=== PATIENT | female | born 1950 | race Caucasian/White ===

== ENCOUNTER 2017-12-12 16:40 | Observation (INO) | payer OTHER ==
[2017-12-12] MEDS: SOD CHLORIDE 0.9% 500 ML IV (18:08)
[2017-12-12] MEDS: ASPIRIN 81 MG TAB PO (18:08)
[2017-12-12 18:16] LABS: ADD MAN DIFF? NO
[2017-12-12 18:19] LABS: WHITE BLOOD COUNT 9.2 10^3/ul (4.8-10.8)
[2017-12-12 18:19] LABS: BASOPHILS % 0.3 % (0.0-2.0); EOSINOPHILS # 0.1 10^3/ul (0.0-0.5); EOSINOPHILS % 1.4 % (0.0-7.0); HEMATOCRIT 36.3 % (37.0-47.0); HEMOGLOBIN 11.9 g/dl (12.0-16.0); LYMPHOCYTES # 2.5 10^3/ul (0.8-2.9); LYMPHOCYTES % 27.4 % (15.0-51.0); MEAN CORPUSCULAR HEMOGLOBIN 28.9 pg (29.0-33.0); MEAN CORPUSCULAR HGB CONC 32.8 g/dl (32.0-37.0); MEAN CORPUSCULAR VOLUME 88.1 fl (82.0-101.0); MONOCYTE # 0.6 10^3/ul (0.3-0.9); MONOCYTES % 6.1 % (0.0-11.0); NEUTROPHIL # 5.9 10^3/ul (1.6-7.5); NEUTROPHILS % 64.5 % (39.0-77.0); PLATELET COUNT 319 10^3/UL (140-415); RED BLOOD COUNT 4.12 10^6/ul (4.20-5.40)
[2017-12-12 18:39] LABS: ANION GAP 15 (8-16); BLOOD UREA NITROGEN 27 mg/dl (7-20); CALCIUM 9.1 mg/dl (8.4-10.2); CARBON DIOXIDE 27 mmol/L (21-31); CHLORIDE 103 mmol/L (97-110); CREATININE 0.96 mg/dl (0.44-1.00); GLUCOSE 128 mg/dl (70-220); SODIUM 141 mmol/L (135-144)
[2017-12-12 19:02] LABS: TROPONIN-I < 0.012 ng/ml (0.00-0.12)
[2017-12-12] MEDS ORDERED: ACETAMINOPHEN 325 MG TAB PO (21:00)
[2017-12-12] MEDS ORDERED: ONDANSETRON 4 MG INJ IV (21:00)
[2017-12-13] MEDS ORDERED: GLUCAGON 1 MG INJ IM (04:30)
[2017-12-13] MEDS ORDERED: GLUCOSE GEL 15 GRAM TUBE PO ×2 (04:30)
[2017-12-13] MEDS ORDERED: ACETAMINOPHEN 325 MG TAB PO (04:30)
[2017-12-13] MEDS ORDERED: DOCUSATE SODIUM 100 MG CAP PO (04:30)
[2017-12-13] MEDS ORDERED: DEXTROSE 50% 50 ML SYRINGE IV ×2 (04:30)
[2017-12-13] MEDS ORDERED: GLUCOSE GEL 15 GRAM TUBE BUCCAL (04:30)
[2017-12-13] MEDS ORDERED: ONDANSETRON 4 MG INJ IV (04:30)
[2017-12-13] MEDS: INSULIN ASPART [NOVOLOG] 3 ML PEN SC ×4 (07:55→20:37)
[2017-12-13] MEDS: GABAPENTIN 300 MG CAP PO ×2 (08:16→20:39)
[2017-12-13 08:52] LABS: ADD MAN DIFF? NO
[2017-12-13 08:57] LABS: BASOPHIL # 0.1 10^3/ul (0.0-0.1); BASOPHILS % 0.6 % (0.0-2.0); EOSINOPHILS # 0.2 10^3/ul (0.0-0.5); EOSINOPHILS % 2.5 % (0.0-7.0); HEMATOCRIT 33.6 % (37.0-47.0); HEMOGLOBIN 11.1 g/dl (12.0-16.0); LYMPHOCYTES # 2.3 10^3/ul (0.8-2.9); LYMPHOCYTES % 28.1 % (15.0-51.0); MEAN CORPUSCULAR HEMOGLOBIN 28.7 pg (29.0-33.0); MEAN CORPUSCULAR VOLUME 86.8 fl (82.0-101.0); MEAN PLATELET VOLUME 9.3 fl (7.4-10.4); MONOCYTE # 0.5 10^3/ul (0.3-0.9); MONOCYTES % 5.8 % (0.0-11.0); NEUTROPHIL # 5.2 10^3/ul (1.6-7.5); NEUTROPHILS % 62.6 % (39.0-77.0); PLATELET COUNT 282 10^3/UL (140-415); RED BLOOD COUNT 3.87 10^6/ul (4.20-5.40); RED CELL DISTRIBUTION WIDTH 14.1 % (11.5-14.5)
[2017-12-13 08:57] LABS: WHITE BLOOD COUNT 8.3 10^3/ul (4.8-10.8)
[2017-12-13 09:27] LABS: ANION GAP 11 (8-16); BLOOD UREA NITROGEN 18 mg/dl (7-20); CALCIUM 8.8 mg/dl (8.4-10.2); CARBON DIOXIDE 28 mmol/L (21-31); CHLORIDE 106 mmol/L (97-110); CREATINE KINASE 57 IU/L (23-200); CREATININE 0.66 mg/dl (0.44-1.00); GLUCOSE 107 mg/dl (70-220); POTASSIUM 4.1 mmol/L (3.5-5.1); SODIUM 141 mmol/L (135-144)
[2017-12-13 09:37] LABS: CK-MB 0.57 ng/ml (0.0-2.4)
[2017-12-13 09:39] LABS: TROPONIN-I < 0.012 ng/ml (0.00-0.12)
[2017-12-13] MEDS ORDERED: NITROGLYCERIN (SL) 0.4 MG TAB SL (12:00)
[2017-12-13 13:45] LABS: CHOL/HDL RATIO 2.7 RATIO; HDL CHOLESTEROL 49 mg/dl (35-98); LDL CHOLESTEROL,CALCULATED 63 mg/dl; TRIGLYCERIDES 104 mg/dl (0-149)
[2017-12-13 13:45] LABS: CHOLESTEROL 133 mg/dl (100-200)
[2017-12-13 13:49] LABS: HEMOGLOBIN A1C 6.1 % (0-5.9)
[2017-12-13 13:56] LABS: B-TYPE NATRIURETIC PEPTIDE 371 PG/ML (0-125)
[2017-12-13 15:37] LABS: CREATINE KINASE 55 IU/L (23-200)
[2017-12-13 15:50] LABS: CK INDEX 0.9
[2017-12-13 15:55] LABS: TROPONIN-I < 0.012 ng/ml (0.00-0.12)
[2017-12-13 19:22] LABS: CREATINE KINASE 59 IU/L (23-200)
[2017-12-13 19:35] LABS: CK INDEX 0.8; CK-MB 0.49 ng/ml (0.0-2.4)
[2017-12-13 19:36] LABS: TROPONIN-I < 0.012 ng/ml (0.00-0.12)
[2017-12-14] MEDS: ACCU-CHEK XX (02:00)
[2017-12-14 07:15] LABS: ADD MAN DIFF? NO
[2017-12-14 07:20] LABS: WHITE BLOOD COUNT 7.6 10^3/ul (4.8-10.8)
[2017-12-14 07:20] LABS: BASOPHILS % 0.5 % (0.0-2.0); EOSINOPHILS # 0.2 10^3/ul (0.0-0.5); HEMATOCRIT 34.8 % (37.0-47.0); HEMOGLOBIN 11.4 g/dl (12.0-16.0); LYMPHOCYTES # 2.6 10^3/ul (0.8-2.9); MEAN CORPUSCULAR HEMOGLOBIN 28.8 pg (29.0-33.0); MEAN CORPUSCULAR HGB CONC 32.8 g/dl (32.0-37.0); MEAN CORPUSCULAR VOLUME 87.9 fl (82.0-101.0); MEAN PLATELET VOLUME 9.3 fl (7.4-10.4); MONOCYTE # 0.6 10^3/ul (0.3-0.9); MONOCYTES % 7.7 % (0.0-11.0); NEUTROPHIL # 4.1 10^3/ul (1.6-7.5); NEUTROPHILS % 54.4 % (39.0-77.0); PLATELET COUNT 313 10^3/UL (140-415); RED BLOOD COUNT 3.96 10^6/ul (4.20-5.40); RED CELL DISTRIBUTION WIDTH 13.8 % (11.5-14.5)
[2017-12-14 07:49] LABS: ANION GAP 11 (8-16); BLOOD UREA NITROGEN 19 mg/dl (7-20); CALCIUM 9.4 mg/dl (8.4-10.2); CARBON DIOXIDE 30 mmol/L (21-31); CHLORIDE 106 mmol/L (97-110); CREATININE 0.69 mg/dl (0.44-1.00); GLUCOSE 133 mg/dl (70-220); POTASSIUM 4.9 mmol/L (3.5-5.1); SODIUM 142 mmol/L (135-144)
[2017-12-14 07:50] LABS: HEMOGLOBIN A1C 6.1 % (0-5.9)
[2017-12-14] MEDS: INSULIN ASPART [NOVOLOG] 3 ML PEN SC ×3 (07:55→17:27)
[2017-12-14] MEDS: GABAPENTIN 300 MG CAP PO (08:11)
== END 2017-12-14 20:00 | disposition home or self-care (01) ==
LOC: TEL 20:47 → E/R 16:40
DX: R55 Syncope and collapse (principal); I10 Essential (primary) hypertension; E11.9 Type 2 diabetes mellitus without complications; F41.9 Anxiety disorder, unspecified; Z79.84 Long term (current) use of oral hypoglycemic drugs; E78.5 Hyperlipidemia, unspecified; E66.9 Obesity, unspecified; Z68.32 Body mass index [BMI] 32.0-32.9, adult; G89.4 Chronic pain syndrome; R94.31 Abnormal electrocardiogram [ECG] [EKG]; R00.1 Bradycardia, unspecified; M16.11 Unilateral primary osteoarthritis, right hip; D64.9 Anemia, unspecified
CPT/HCPCS: 36415; 70450; 71045; 80048; 80061; 82550; 82553; 82962; 83036; 83880; 84443; 84484; 85025; 93005; 93306; 93880; 99285-25; G0378